=== PATIENT | female | born 1950 | race Caucasian/White ===

== ENCOUNTER 2017-01-18 22:52 | Emergency (ER) | payer BC, MEDICARE ==
--- NOTE | ~2017-01-18 | CT101 ---
[facility] A Service of [facility] & [facility] RADIOLOGY TEXT RESULTS PATIENT: SOLOMON FIORE LOCATION: [facility] : 48 UNIT #: [id number] AGE: [address]: SHAKEEL HAWKINS APRN SEX: F ORDER DR: [id number] [facility] [address] [place], [place] [address] [id number] E MR#: [id number] Acc #: [id number] NAME: SOLOMON FIORE : 1950 SEX: F STUDY DATE/TIME: 01/19/2017 1:17 UNIT: [facility] ROOM: STUDY DESCRIPTION: CT Maxillofacial Area Wo Cont Attending Physician: Shakeel Hawkins Aprn Ordering Physician: Shakeel Hawkins Aprn Primary Care Physician: Hasmukh Montemayor D.O. MEDICAL IMAGING REPORT This report is preliminary unless electronic signature is present EXAM Facial bone CT no contrast, 01/19/2017 INDICATIONS [place], bruising of the jaw, headache, neck pain. Abnormal mandible series earlier tonight. TECHNIQUE Noncontrast CT of the facial bones was performed. Coronal and oblique sagittal views were performed. No comparisons. The CT exam was performed with one or more of the following radiation dose reduction techniques: automatic exposure control, adjustment of mA and/or kV according to patient size, and iterative reconstruction. FINDINGS CT facial bones: There is no distinct facial bone fracture. The abnormal appearance of the mandibular ramus on the prior plain film series related to artifact from oblique positioning. There is degenerative change of the temporomandibular joints bilaterally. Orbital floors are intact. Nasal bone complex is intact. No additional evidence of fracture identified. There are degenerative changes in the visualized cervical spine. Small amount of fluid in the mastoid air cells bilaterally is nonspecific and may reflect mild mastoiditis. Nonspecific soft tissue density nodule to the left of the mandibular body anteriorly measures 11 mm. No aggressive features identified but this cannot be further assessed or characterized. IMPRESSION 1. No acute fracture identified. The appearance of the mandibular ramus on the prior plain film series appears to be related to oblique imaging and artifactual in nature. 2. There is degenerative change of the temporal mandibular joints [facility] A Service of [facility] & [facility] RADIOLOGY TEXT RESULTS PATIENT: OSLOMON FIORE LOCATION: [facility] : 48 UNIT #: [id number] AGE: [address]: SHAKEEL HAWKINS APRN SEX: F ORDER DR: bilaterally. 3. Small amount of fluid in the mastoid air cells bilaterally may reflect mild mastoiditis but is nonspecific. 4. Degenerative change of the cervical spine. Dictated by... Buck Schaefer M.D. THIS IS AN ELECTRONICALLY VERIFIED REPORT Buck Schaefer M.D. at 01/19/2017 9:57 PM Jose TD: 01/19/2017 10:31 JOB #: [id number] MEDICAL IMAGING REPORT Page 1 of 1 COPY
--- NOTE | ~2017-01-18 | CT71 ---
[facility] A Service [facility] RADIOLOGY TEXT RESULTS PATIENT: SOLOMON FIORE LOCATION: [facility] : 48 UNIT #: [id number] AGE: [address]: SHAKEEL HAWKINS APRN SEX: F ORDER DR: [id number] [facility] [address] [place], [place] [address] [id number] E MR#: [id number] Acc #: [id number] NAME: SOLOMON FIORE : 1950 SEX: F STUDY DATE/TIME: 01/18/2017 23:57 UNIT: [place] ROOM: STUDY DESCRIPTION: CT Head Wo Contrast Attending Physician: Shakeel Hawkins Aprn Ordering Physician: Shakeel Hawkins Aprn Primary Care Physician: Hasmukh Montemayor D.O. MEDICAL IMAGING REPORT This report is preliminary unless electronic signature is present EXAM CT brain no contrast 01/18/2017 INDICATIONS 67-year-old female [place] 3 [place] and has neck pain, jaw pain and a headache. TECHNIQUE Noncontrast CT brain compared with 09/24/2016. This CT exam was performed with one or more of the following radiation dose reduction techniques: automatic exposure control, adjustment of mA and/or kV according to patient size, and iterative reconstruction. FINDINGS CT brain: Sulci and ventricles demonstrate mild generalized atrophy and are otherwise unremarkable. No midline shift. No evidence of acute intracranial hemorrhage. There is no mass, mass effect or edema to suggest acute infarct and no extraaxial fluid collections are present. Globes are intact. Bones are intact. There is fluid in the mastoid air cell complexes bilaterally. New compared to prior study. This may reflect mild mastoiditis. Minimal ethmoid sinus disease. IMPRESSION 1. Atrophy but no clearly acute intracranial process. No evidence of acute intracranial hemorrhage. 2. Small amount of fluid in the mastoid air cells bilaterally. This may reflect mastoiditis in the appropriate clinical context. Minimal ethmoid sinus disease. Dictated by... Buck Schaefer M.D. [facility] A Service of [facility] RADIOLOGY TEXT RESULTS PATIENT: SOLOMON FIORE LOCATION: [facility] : 48 UNIT #: [id number] AGE: [address]: SHAKEEL HAWKINS APRN SEX: F ORDER DR: THIS IS AN ELECTRONICALLY VERIFIED REPORT Buck Schaefer M.D. at 01/19/2017 9:59 PM Keke TD: 01/19/2017 10:21 JOB #: [id number] MEDICAL IMAGING REPORT Page 1 of 1 COPY
--- NOTE | ~2017-01-18 | CR141 ---
[facility] A Service of [facility] RADIOLOGY TEXT RESULTS PATIENT: SOLOMON FIORE LOCATION: [facility] : 48 UNIT #: [id number] AGE: [address]: SHAKEEL HAWKINS APRN SEX: F ORDER DR: [id number] [facility] [address] [place], [place] [address] [id number] E MR#: [id number] Acc #: [id number] NAME: SOLOMON FIORE : 1950 SEX: F STUDY DATE/TIME: 01/18/2017 23:32 UNIT: [facility] ROOM: STUDY DESCRIPTION: CR Hand Min 3 Views Lt Attending Physician: Shakeel Hawkins Aprn Ordering Physician: Shakeel Hawkins Aprn Primary Care Physician: Hasmukh Motnemayor D.O. MEDICAL IMAGING REPORT This report is preliminary unless electronic signature is present EXAM Left hand, 01/18/2017 INDICATION 67-year-old female who fell 3 days ago and has pain and bruising in the left hand and wrist. TECHNIQUE 3 views of the left hand COMPARISON Correlation is made with wrist series, 05/18/2016 FINDINGS The bones are osteoporotic. The patient is status post screw and plate fixation of distal radius fracture. There is a fracture of the base of the proximal phalanx fifth digit. No distinct additional fracture identified. There is no definite interarticular extension with respect to the fracture of the fifth digit. Advanced degenerative change in the first carpometacarpal joint. Sequela of old trauma involving the ulnar styloid process. IMPRESSION 1. Acute minimally displaced fracture of the proximal phalanx fifth digit along its base. No definite interarticular extension. 2. Sequela of prior trauma involving the distal radius and ulna with screw and plate fixation of the distal radius. 3. Degenerative change in the first carpometacarpal joint and generalized osteoporosis. Dictated by... Buck Schaefer M.D. [facility] A Service of [facility] RADIOLOGY TEXT RESULTS PATIENT: SOLOMON FIORE LOCATION: [place] : 48 UNIT #: [id number] AGE: [address]: SHAKEEL HAWKINS APRN SEX: F ORDER DR: THIS IS AN ELECTRONICALLY VERIFIED REPORT Buck Schaefer M.D. at 01/19/2017 10:00 PM Nicko TD: 01/19/2017 10:23 JOB #: [id number] MEDICAL IMAGING REPORT Page 1 of 1 COPY
--- NOTE | ~2017-01-18 | CR281 ---
[facility] A Service of [facility] RADIOLOGY TEXT RESULTS PATIENT: SOLOMON FIORE LOCATION: [place] : 48 UNIT #: [id number] AGE: [address]: SHAKEEL HAWKINS APRN SEX: F ORDER DR: [id number] [facility] [address] [place], [place] [address] [id number] E MR#: [id number] Acc #: [id number] NAME: SOLOMON FIORE : 1950 SEX: F STUDY DATE/TIME: 01/18/2017 23:34 UNIT: [facility] ROOM: STUDY DESCRIPTION: CR Wrist Min 3 View Lt Attending Physician: Shakeel Hawkins Aprn Ordering Physician: Shakeel Hawkins Aprn Primary Care Physician: Hasmukh Montemayor D.O. MEDICAL IMAGING REPORT This report is preliminary unless electronic signature is present EXAM Left wrist 01/18/2017. INDICATIONS Trauma, fell 3 days ago. Pain in the wrist, bruising in the wrist and hand. TECHNIQUE 3 views left wrist. COMPARISON No comparisons. FINDINGS There is a fracture deformity of the base of the proximal phalanx fifth digit. No definite interarticular extension. Sequela of chronic trauma involving the distal radius and ulna with screw and plate fixation of the distal radius. The bones are osteoporotic. There is degenerative change of the proximal and distal carpal rows and first and second carpometacarpal joints. IMPRESSION 1. Acute fracture deformity of the base of the proximal phalanx fifth digit. No definite interarticular extension. 2. Osteoporosis and degenerative change in the wrist as described. 3. Sequelae of old healed trauma involving the distal radius and ulna. Dictated by... Buck Schaefer M.D. THIS IS AN ELECTRONICALLY VERIFIED REPORT Buck Schaefer M.D. at 01/19/2017 10:00 PM IFEANYIY/hipolito [facility] A Service of [facility] RADIOLOGY TEXT RESULTS PATIENT: SOLOMON FIORE LOCATION: [facility] : 48 UNIT #: [id number] AGE: [address]: SHAEKEL HAWKINS APRN SEX: F ORDER DR: TD: 01/19/2017 10:25 JOB #: [id number] MEDICAL IMAGING REPORT Page 1 of 1 COPY
--- NOTE | ~2017-01-18 | CT52 ---
[facility] A Service of [facility] & [facility] RADIOLOGY TEXT RESULTS PATIENT: SOLOMON FIORE LOCATION: [facility] : 48 UNIT #: [id number] AGE: [address]: SHAKEEL HAWKINS APRN SEX: F ORDER DR: [id number] [facility] [address] [place], [place] [address] [id number] E MR#: [id number] Acc #: [id number] NAME: SOLOMON FIORE : 1950 SEX: F STUDY DATE/TIME: 01/19/2017 0:11 UNIT: [facility] ROOM: STUDY DESCRIPTION: CT Cervical Spine Wo Cont Attending Physician: Shakeel Hawkins Aprn Ordering Physician: Shakeel Hawkins Aprn Primary Care Physician: Hasmukh Montemayor D.O. MEDICAL IMAGING REPORT This report is preliminary unless electronic signature is present EXAM CT cervical spine no contrast INDICATION [place] 3 [place]. Neck and jaw pain, headache. TECHNIQUE Noncontrast CT of the C-spine was performed. Sagittal and coronal reformats performed. This CT examination was performed with one or more of the following radiation dose reduction techniques: automatic exposure control, adjustment of mA and/or kV according to patient size, and iterative reconstruction. COMPARISON 09/24/2016. FINDINGS Dens and lateral masses intact. There is redemonstration of extensive degenerative disc disease in the cervical spine at all levels, most severe at C3-4, C4-5, C5-6 and C6-7. There is redemonstration of 3 mm of antegrade listhesis of C3 upon C4 and approximately 3 mm of retrograde listhesis of C4 on C5 appearance not significantly changed. There is multilevel foraminal stenosis. There is at least moderate central canal stenosis at C4-5. No acute fracture. Prevertebral soft tissues are unremarkable. There are changes of chondrocalcinosis associated with the facet joints and at C1-2. This may reflect CPPD. Included lung apices are clear. Included thyroid unremarkable. Reactive-appearing lymph nodes. IMPRESSION 1. No evidence of acute fracture. Advanced degenerative changes in the cervical spine similar to a prior study of 09/24/2016. 2. There is central canal stenosis at C4-5 at least moderate in degree, appearance similar to the prior study however. [facility] A Service of [facility] RADIOLOGY TEXT RESULTS PATIENT: SOLOMON FIORE LOCATION: [facility] : 48 UNIT #: [id number] AGE: [address]: SHAKEEL HAWKINS APRN SEX: F ORDER DR: 3. Redemonstration of antegrade listhesis of C3 on C4 and retrograde listhesis of C4 on C5 unchanged measuring about 3 mm at each level. This is probably related to degenerative disc disease and to a lesser extent facet arthropathy. 4. Calcifications involving the facets and the atlantoaxial interface suggestive of CPPD. 5. Small amount of fluid in the mastoid air cells bilaterally which may reflect a mild degree of mastoiditis. Dictated by... Buck Schaefer M.D. THIS IS AN ELECTRONICALLY VERIFIED REPORT Buck Schaefer M.D. at 01/19/2017 10:00 PM IKKA/sim TD: 01/19/2017 10:29 JOB #: [id number] MEDICAL IMAGING REPORT Page 1 of 1 COPY
--- NOTE | ~2017-01-18 | CR187 ---
[facility] A Service of [facility] RADIOLOGY TEXT RESULTS PATIENT: SOLOMON FIORE LOCATION: [place] : 48 UNIT #: [id number] AGE: [address]: SHAKEEL HAWKINS APRN SEX: F ORDER DR: [id number] [facility] [address] [place], [place] [address] [id number] E MR#: [id number] Acc #: [id number] NAME: SOLOMON FIORE : 1950 SEX: F STUDY DATE/TIME: 01/18/2017 23:38 UNIT: [facility] ROOM: STUDY DESCRIPTION: CR Mandible Min 4 View Attending Physician: Shakeel Hawkins Aprn Ordering Physician: Shakeel Hawkins Aprn Primary Care Physician: Hasmukh Montemayor D.O. MEDICAL IMAGING REPORT This report is preliminary unless electronic signature is present EXAM Mandible series, 01/18/2017 INDICATION Fell 3 days ago, chin pain and bruising, left-sided pain. TECHNIQUE Multiple views (4 or greater) of the mandible were performed. COMPARISON No comparisons FINDINGS The exam degraded by nonstandard positioning. These were apparently the best images possible. There is an unusual angulation of the mid aspect of the ramus on the left suspicious for fracture. Further evaluation with a CT is recommended. No other evidence of distinct fracture identified. Extensive dental hardware changes. There are degenerative changes in the cervical spine. IMPRESSION Findings suspicious for a mid mandibular ramus fracture on the left. CT facial bones recommended for further assessment. Dictated by... Buck Schaefer M.D. THIS IS AN ELECTRONICALLY VERIFIED REPORT Buck Schaefer M.D. at 01/19/2017 10:00 PM Nicko TD: 01/19/2017 10:25 JOB #: [id number] [facility] A Service of [facility] RADIOLOGY TEXT RESULTS PATIENT: SOLOMON FIORE LOCATION: [facility] : 48 UNIT #: [id number] AGE: [address]: SHAKEEL HAWKINS APRN SEX: F ORDER DR: MEDICAL IMAGING REPORT Page 1 of 1 COPY
[~2017-01-18 22:52] MED LIST: ALDACTAZIDE 25/1 TAB; AMITRIPTYLINE H25 MG PO; ASPIRINEC PO; DEXAMETHASONE OU; DIAZEPAM; DIAZEPAM PO; DITROPAN5 MG PO; HCTZ PO; HYDROCHLOROTHIA25 MG; HYDROCHLOROTHIA25 MG PO; HYDROCODON-ACE1 EAC5 PO; HYDROCODON-ACE1 EAC9 PO; HYDROCODONE-APA1 T51 PO; IRON TABLETS1 TAB; K-DUR20 ME1 PO; KEFLEX; LOPRESSOR PO; LORTAB 10/500 T1 TAB; METOPROLOL TAR25 MG; METOPROLOL TAR25 MG PO; OMEPRAZOLE20 M2; OMEPRAZOLE20 M2 PO; PAXIL CR; PAXIL CR25 MG PO; PREVACID; PRILOSEC; PRILOSEC40 MG PO; TIGECYCLINE IV; TOBRAMYCIN OU
== END 2017-01-19 02:10 | disposition home or self-care (01) ==
LOC: CFTX 22:52
DX: S13.4XXA Sprain of ligaments of cervical spine, initial encounter (principal); S62.617A Displaced fracture of proximal phalanx of left little finger, initial encounter for closed fracture; S61.412A Laceration without foreign body of left hand, initial encounter; S00.83XA Contusion of other part of head, initial encounter; I10 Essential (primary) hypertension; Z88.0 Allergy status to penicillin; Z88.2 Allergy status to sulfonamides; Z88.5 Allergy status to narcotic agent; W01.0XXA Fall on same level from slipping, tripping and stumbling without subsequent striking against object, initial encounter
CPT/HCPCS: 29125; 70110; 70450; 70486; 72125; 73110; 73130; 99284

== ENCOUNTER 2017-01-28 14:50 | Emergency (ER) | payer BC, MEDICARE | END 2017-01-28 14:57 | disposition home or self-care (01) | LOC: CFTX 14:50 | DX: S61.402A Unspecified open wound of left hand, initial encounter (principal); L03.114 Cellulitis of left upper limb; I10 Essential (primary) hypertension; Z90.710 Acquired absence of both cervix and uterus; Z88.0 Allergy status to penicillin; W19.XXXA Unspecified fall, initial encounter | CPT/HCPCS: 99283 ==

== ENCOUNTER → 2017-05-27 | Outpatient (CLI) | payer BC, MEDICARE ==
--- NOTE | ~2017-05-27 | MR32 ---
[facility] A Service of [facility] & [facility] RADIOLOGY TEXT RESULTS PATIENT: SOLOMON FIORE [facility] : 48 UNIT #: [id number] AGE: [address]: Alvino Chambers MD SEX: F ORDER DR: [id number] [facility] [address] [place], [place] [address] [id number] O MR#: [id number] Acc #: [id number] NAME: SOLOMON FIORE : 1950 SEX: F STUDY DATE/TIME: 05/27/2017 17:22 UNIT: [facility] ROOM: STUDY DESCRIPTION: MR Cervical Wo Contrast Attending Physician: Alvino Chambers M.D. Referring Physician: Alvino Chambers M.D. Ordering Physician: Alvino Chambers M.D. Primary Care Physician: Hasmukh Montemayor D.O. MRI CENTER REPORT This report is preliminary unless electronic signature is present. PROCEDURE Routine cervical spine MR without contrast, 05/27/17 COMPARISON Prior cervical spine CT dated 01/19/2017 CLINICAL HISTORY Neck pain for 4-5 years with bilateral hand numbness for 2 years, progressively worsening. FINDINGS There is a midcervical reversal of lordosis, and there is a retrolisthesis at L4-5 and anterolisthesis at L3-4. There is bony sclerosis in the C5 vertebral body. This appears chronic and on the basis of chronic degenerative change. There is no acute marrow infiltration or edema. Cord signal appears normal. The posterior fossa and its contents are normal. The paraspinous soft tissues are unremarkable. At C2-3 the canal and right foramen are normal but there is moderate left foraminal narrowing. At C3-4 disc and osteophyte complex is seen with possibly slight cord compression and moderate bilateral foraminal narrowing. At C-5, there is a right side predominant disc and osteophyte complex, mild right-sided cord compression and moderate right and mild left foraminal stenosis. At C5-6, there is canal stenosis probably without cord compression though there could be slight cord compression. There is probably no more than mild bilateral foraminal narrowing. [facility] A Service of [facility] & [facility] RADIOLOGY TEXT RESULTS PATIENT: SOLOMON FIORE LOCATION: [facility] : 48 UNIT #: [id number] AGE: [address]: Alvino Chambers MD SEX: F ORDER DR: At C6-7, there is mild canal stenosis but without cord compression and with no left and mild or [id number] right foraminal narrowing. At C7-T1, there is no canal stenosis. The left foramen is normal but there is at least mild right foraminal narrowing. There is a cystic lesion in the left suprascapular region presumably related to the glenohumeral joint. This would be better assessed on direct imaging of the left shoulder. IMPRESSION 1. Cervical degenerative change with multilevel cord compression though no abnormal cord signal. There is multilevel foraminal narrowing described in detail above. There is reversal of lordosis and even C3-4 anterolisthesis and C4-5 retrolisthesis. Overall alignment is unchanged since the CT cervical spine of 01/19/2017. 2. Incidentally noted is a left suprascapular cystic lesion that may involve the left suprascapular notch. Incompletely assessed here and while a benign etiology related to the glenohumeral joint is suspected, if further imaging is desired, then dedicated imaging of the shoulder would be recommended. Dictated by... Alvino Lopes M.D. THIS IS AN ELECTRONICALLY VERIFIED REPORT Alvino Lopes M.D. at 06/02/2017 5:21 PM SABINA/rand TD: 05/28/2017 21:56 JOB #: [id number] MRI CENTER REPORT Page 1 of 1 COPY
== END | disposition home or self-care (01) ==
LOC: CMRI 10:44
DX: M47.22 Other spondylosis with radiculopathy, cervical region (principal); G95.9 Disease of spinal cord, unspecified; M48.02 Spinal stenosis, cervical region; M43.12 Spondylolisthesis, cervical region; M99.81 Other biomechanical lesions of cervical region
CPT/HCPCS: 72141